=== PATIENT | female | born 1960 | race Caucasian/White ===

== ENCOUNTER 2023-01-30 18:19 | Emergency (ER) | payer OTHER, SELFPAY ==
[2023-01-30 18:23] VITALS: BP 134/84; PULSE 66; RESP 18; TEMP 36.2; O2SAT 99; BMI 29.3
--- NOTE | 2023-01-30 18:44 | CRLHL7_ITS ---
For Patients: As a result of the Century Cures Act, medical imaging exams and procedure reports are released immediately into your electronic medical record. You may view this report before your referring provider. If you have questions, please contact your health care provider. INDICATION: Constipation. COMPARISON: None. TECHNIQUE: Supine and upright views the abdomen. IMPRESSION: Nonobstructive bowel gas pattern. No pneumatosis or pneumoperitoneum. Above-average stool burden. Postsurgical changes in the stomach. Degenerative changes in the spine. Imaged lung bases are unremarkable. Calcified pelvic phleboliths. Dictated by Luis Delgado MD @ 01/30/2023 7:37:28 PM (Electronically Signed)
--- NOTE | 2023-01-30 18:45 | ED.GENADULT ---
HPI - General Adult General Time Seen by Provider: 18:45 Date Seen: 01/30/23 Chief complaint: Abdominal Pain Stated complaint: Constipated Time Seen by Provider: 01/30/23 18:27 Source: patient and RN notes reviewed Mode of arrival: ambulatory Limitations: no limitations History of Present Illness HPI narrative: Patient is a 62-year-old female coming in with concern of constipation. She was referred from Urgent Care to the ER for evaluation. She is worried about constipation. She has had a history of constipation that required manual disimpaction before. About 3 weeks ago, patient was on amoxicillin for a sinus infection. Her stools were becoming runny with the antibiotic use and her baseline use of MiraLax. She went off the MiraLax while on the antibiotics but feels that the constipation started. She used milk of magnesia over the weekend and feels like there is still something up inside that is not passing. She states she has been getting runny stool. When she goes to bear down and have a bowel movement, she feels like there is something up inside. She is actually felt with gloved fingers and cannot feel anything in the rectal vault. She has not had any nausea, no vomiting. States her oral intake of solids and liquids is fine. No abdominal discomfort unless she is attempting to have a bowel movement. She had a gastric bypass up in the [facility] area in about 2018. She states she has had colonoscopies before, believes she is up-to-date. Related Data Home Medications Medication Instructions Recorded Confirmed No Known Home Medications 01/30/23 01/30/23 Allergies Allergy/AdvReac Type Severity Reaction Status Date / Time No Known Drug Allergies Allergy Verified 01/30/23 18:28 Review of Systems Status of ROS: Reports: 10 or more systems reviewed and unremarkable except as noted in History and below [facility] Social History Smoking Status: Never smoker service: No Exam Const: Vital Signs, click to edit/add: Vital Signs - 24 hr 01/30/23 18:23 Temperature 97.1 F L Pulse Rate [Right Pulse Oximeter] 66 Respiratory Rate 18 Blood Pressure [Ri ght Upper Arm] 134/84 Pulse Oximetry 99 Oxygen Delivery Me thod Room Air Documenting provider has reviewed patient's vital signs: yes Common normals: no apparent distress, average body habitus, oriented x3, no limitations, healthy appearing and alert General appearance: cooperative, comfortable, well kempt and well developed HENMT: Common normals: normocephalic, head/scalp atraumatic and hearing grossly normal bilaterally Head and scalp: normocephalic and atraumatic Eye: Common normals: PERRL, EOMs intact bilaterally, conjunctivae normal and no scleral icterus Conjunctiva: conjunctiva(e) normal Pupil: PERRL Neck & C-Spine: Common normals: full ROM, no lymphadenopathy, supple, no meningeal signs, no JVD and thyroid normal Thyroid: thyroid normal Resp: Common normals: normal respiratory effort, no retractions, no use of accessory muscles and clear to auscultation bilaterally Auscultation: clear to auscultation bilaterally Cardio: Common normals: no JVD, regular rate, regular rhythm, S1 normal heart sound, S2 normal heart sound, no gallops, no clicks and no murmurs Rate: regular rate Rhythm: regular rhythm Heart sounds: S1 normal and S2 normal GI: Common normals: Normal to inspection, nondistended, normoactive bowel sounds present, soft to palpation, non-tender, no hepatosplenomegaly and no masses Palpation: soft and no hepatosplenomegaly Neuro: Common normals: oriented x3 Sensorium/orientation: alert Meningeal signs: no meningeal signs Psych: Appearance: well kempt Course Course Hospital Course: Patient's clinical exam is quite benign, believe we can start with flat and upright. Without any nausea or vomiting and having good oral intake, this is very doubtful to be an obstructive process. Have reviewed with her that we will start with an abdominal series with flat and upright to see stool burden, confirmed normal appearance of bowels. We will check baseline labs including electrolytes. She understands that we may need to proceed with CT imaging if there is any concerns. Obstruction, partial obstruction are very unlikely. This could be constipation, possible mass within the colon. At this time she does not seem to be in any distress, will proceed with basic labs and abdominal imaging with plain films. Reevaluation(s) Reevaluation #1: Anus appears normal but there is some surrounding mild erythema externally an some stool smearing. Digital rectal exam reveals no mass in the vault, no pain. I cannot feel any stool burden. Patient states when she feels like she is trying to push she feels like something is moving down in then comes back up. I cautioned patient to not strain if she is doing so, can actually cause as rectal prolapse if she is excessively straining. Did review that if she continues to have symptoms after clean out, may need to actually have colonoscopy done. Did review that the abdominal film does show some stool burden but it is higher up. Unfortunately this is not anything that we will be able to manually disimpact. We reviewed the shortage in difficulty of finding magnesium citrate. Will have her try a GoLYTELY colonoscopy prep to fully clean her out. If she continues to feel the sensation, may need to actually have colonoscopy done. Time: 20:03 Vital Signs Vital signs: Initial Vital Signs Temperature 97.1 F L 01/30/23 18:23 Temperature Source Temporal Artery Scan 01/30/23 18:23 Pulse Rate 66 01/30/23 18:23 Respiratory Rate 18 01/30/23 18:23 Blood Pressure 134/84 01/30/23 18:23 Blood Pressure Mean 100 01/30/23 18:23 Blood Pressure Position Sitting 01/30/23 18:23 Pulse Oximetry 99 01/30/23 18:23 Oxygen Delivery Method 01/30/23 18:23 Vital Signs Temperature 97.1 F L 01/30/23 18:23 Pulse Rate 66 01/30/23 18:23 Respiratory Rate 18 01/30/23 18:23 Blood Pressure 134/84 01/30/23 18:23 Pulse Oximetry 99 01/30/23 18:23 Oxygen Delivery Method 01/30/23 18:23 Temperature 97.1 F L 01/30/23 18:23 Pulse Rate 66 01/30/23 18:23 Respiratory Rate 18 01/30/23 18:23 Blood Pressure 134/84 01/30/23 18:23 Pulse Oximetry 99 01/30/23 18:23 Oxygen Delivery Method 01/30/23 18:23 Medical Decision Making Lab Data Lab results reviewed: Yes I reviewed the patient's lab results Labs: Lab Results 01/30/23 01/30/23 01/30/23 Range/Units 19:10 19:10 19:10 WBC 6.32 (4.50-11.00) K/uL RBC 4.23 (4.00-5.20) m/uL Hgb 12.4 (12.0-16.0) gm/dL Hct 37.3 (33.0-51.0) % MCV 88 (80-100) fL MCH 29 (26-34) pg MCHC 33 (32-36) gm/dL RDW Coeff of Rosemary 12.9 (11.5-15.5) % Plt Count 179 (140-440) K/uL Neut % (Auto) 64.3 (42.0-72.0) % Lymph % (Auto) 24.8 (20-44) % Ingham % (Auto) 9.5 (0.0-11.0) % Eos % (Auto) 0.9 (0.0-7.0) % Baso % (Auto) 0.3 (0.0-3.0) % Neut # (Auto) 4.06 (1.7-7.0) K/uL Lymph # (Auto) 1.57 (0.90-2.90) K/uL Ingham # (Auto) 0.60 (0.00-0.90) K/UL Eos # (Auto) 0.06 (0.00-0.50) K/uL Baso # (Auto) 0.02 (0.00-0.30) K/uL Sodium 138 (135-149) mmol/L Potassium 3.5 L (3.6-5.1) mmol/L Chloride 105 (96-114) mmol/L Carbon Dioxide 29 (20-32) mmol/L BUN 25 (7-30) mg/dL Creatinine 0.6 (0.5-1.5) mg/dL Estimated Creat Clear 46.13 Estimated GFR 101 ml/min Glucose 93 (60-115) mg/dL Lactate 0.8 (0.5-1.9) mmol/L Calcium 9.1 (8.4-10.6) mg/dL Magnesium 2.3 (1.5-2.6) mg/dL C-Reactive Protein < 0.5 L (0.5-1.0) mg/dL Imaging Data Abdominal x-ray: Attestation: I have reviewed the pertinent imaging results. Radiologist's impression: Patient: ROBERTO MALCOLM Facility:?[facility] Patient ID:?[id number] Site Patient ID:?[id number]. Site :?[id number] Study:?XRay Abdomen flat and upright-01/30/2023 7:09:39 PM Ordering Physician:Deanna Whittington Final Report: INDICATION: Constipation. COMPARISON: None. TECHNIQUE: Supine and upright views the abdomen. IMPRESSION: Nonobstructive bowel gas pattern. No pneumatosis or pneumoperitoneum. Above-average stool burden. Postsurgical changes in the stomach. Degenerative changes in the spine. Imaged lung bases are unremarkable. Calcified pelvic phleboliths. Dictated by Luis Delgado MD @ 01/30/2023 7:37:28 PM (Electronic Signature) Critical Care Time Critical Care Time Critical Care Time: No Discharge Plan Discharge Clinical Impression: Constipation Patient Disposition: Home, Self-Care Condition: Stable Instructions: Constipation (ED), High Fiber Diet (ED) Additional Instructions: Recommend obtaining the GoLYTELY prep and using for a bowel clear out as you would for colonoscopy. Resume MiraLax once you have completed this prep. If you should start having vomiting, severe abdominal pain or fever, do need to seek re-evaluation. If you have ongoing sense of difficulty with her bowels, may need to have your primary care provider order a colonoscopy. Minimize straining to stool, can cause as prolapse of the rectum/colon. Activity Level: Activity as Tolerated Prescriptions: No Action No Known Home Medications Follow Up/Referrals: Provider,Not a Local [Primary Care Provider] - Stand Alone Forms: MyHealth Info Instructions
[2023-01-30 19:18] LABS: Basophils Absolute Auto 0.02 K/uL (0.00-0.30); Basophils Percent Auto 0.3 % (0.0-3.0); Eosinophils Absolute Auto 0.06 K/uL (0.00-0.50); Eosinophils Percent Auto 0.9 % (0.0-7.0); Hematocrit 37.3 % (33.0-51.0); Hemoglobin* 12.4 gm/dL (12.0-16.0); Immature Granulocytes Abs Auto 0.01 K/uL (0.00-0.30); Immature Granulocytes Pct Auto 0.2 %; Lactate* 0.8 mmol/L (0.5-1.9); Lymphocytes Absolute Auto 1.57 K/uL (0.90-2.90); Lymphocytes Percent Auto 24.8 % (20-44); Mean Corpuscular HGB Conc 33 gm/dL (32-36); Mean Corpuscular Hemoglobin 29 pg (26-34); Mean Corpuscular Volume 88 fL (80-100); Monocytes Percent Auto 9.5 % (0.0-11.0); Neutrophils Absolute Auto 4.06 K/uL (1.7-7.0); Neutrophils Percent Auto 64.3 % (42.0-72.0); Platelet Count* 179 K/uL (140-440); RDW Coefficient of Variation % 12.9 % (11.5-15.5); Red Blood Count 4.23 m/uL (4.00-5.20); White Blood Count* 6.32 K/uL (4.50-11.00)
[2023-01-30 19:35] LABS: Chloride* 105 mmol/L (96-114); Potassium* 3.5 mmol/L (3.6-5.1); Slide Review Reflex No; Sodium* 138 mmol/L (135-149)
[2023-01-30 19:38] LABS: Blood Urea Nitrogen* 25 mg/dL (7-30); Carbon Dioxide* 29 mmol/L (20-32); Creatinine* 0.6 mg/dL (0.5-1.5); Est. Creatinine Clearance* 46.13; Estimated Glomerular Filt Rate 101 ml/min; Glucose* 93 mg/dL (60-115)
[2023-01-30 19:39] LABS: Calcium* 9.1 mg/dL (8.4-10.6); Magnesium* 2.3 mg/dL (1.5-2.6)
[2023-01-30 19:43] LABS: C Reactive Protein* < 0.5 mg/dL (0.5-1.0)
== END 2023-01-30 20:36 | disposition home or self-care (01) ==
PROVIDERS: Emergency Provider Family Medicine
DX: K59.00 Constipation, unspecified (principal)
CPT/HCPCS: 36415; 74019; 80048; 83605; 83735; 85025; 86140; 99283; 99284

== ENCOUNTER 2023-06-01 15:01 | Outpatient (CLI) | payer OTHER, SELFPAY ==
--- NOTE | 2023-06-01 15:40 | CRLHL7_ITS ---
For Patients: As a result of the Century Cures Act, medical imaging exams and procedure reports are released immediately into your electronic medical record. You may view this report before your referring provider. If you have questions, please contact your health care provider. BILATERAL SCREENING MAMMOGRAM WITH COMPUTER-AIDED DETECTION AND TOMOSYNTHESIS TECHNIQUE: CC and MLO views were obtained. These mammographic images have been obtained using full-field digital technique. These mammographic images were interpreted with the benefit of computer-aided detection. Breast tomosynthesis was used in this interpretation. COMPARISON FILM: 05/03/22, 03/15/21, 01/10/19. FINDINGS: The breasts are heterogeneously dense, which may obscure small masses. IMPRESSION: There is no radiographic evidence for malignancy. ASSESSMENT: BI-RADS Category 1: Negative RECOMMENDATION: Routine screening mammogram in 1 year. A lay language report of this examination will be provided to the patient. LUIS FREDERICK M.D. Diagnostic Radiologist [email or web address] [email or web address]/[email or web address] Transcribed: 06/02/2023, 3:[address]/Dictated by: Luis Frederick MD @ 06/02/2023 9:12:00 AM (Electronically Signed)
== END 2023-06-01 15:02 | disposition home or self-care (01) ==
LOC: MAMMO 15:02
PROVIDERS: PCP Family Medicine; Visit Provider Family Medicine
DX: Z12.31 Encounter for screening mammogram for malignant neoplasm of breast (principal); R92.2 Inconclusive mammogram
CPT/HCPCS: 77063; 77067

== ENCOUNTER 2024-05-02 07:30 | Outpatient (CLI) | payer OTHER, SELFPAY ==
--- OUTSIDE RECORDS SUMMARY | 2024-05-05 20:13 | XMS_ITS | Clinical Summary ---
[facility] Address [address] [place] [address] Care Team Providers Care Security Software Engineer Name Role Phone Unavailable Primary Care Provider Unavailabl e Source Comments You are receiving this document as you are listed as the primary care provider,follow-up provider, or the patient has been referred to you for consultation.This is in compliance with the Medicare and[facility] Cent[facility]aid EHR Incentive Program,which states Providers who transition their patient to another setting of careor provider of care or refers their patient to another provider of care shouldprovide summary care record for each transition of care or referral. [employer] Allergies Active Allergy Reactions Criticality Noted Date Comments Ibuprofen Other, see comments Low 01/15/2023 Pt with gastric sleeve in 2018 Medications Medication Sig Dispensed Refills Start Date End Date Status Ascorbic Acid (VITAMIN C) 250 MG tablet Take 1 Tablet (250 mg) by mouth daily. Active Turmeric 500 MG CAPS Acti ve calcium carbonate-vitamin D 600-10 MG-MCG tablet Take 1 Tablet by mouth two times a day. Active Multiple Vitamins-Iron (MULTIVITAMIN/IRON OR) Ac tive Elderberry 500 MG CAPS Ac tive Inulin (FIBER CHOICE OR) Active Active Problems No known active problems Social History Tobacco Use Types Packs/Day Years Used Date Smoking Tobacco: Never Tobacco Cessation:Counseling Given: Not Answered Sex and Gender Information Value Date Recorded Sex Assigned at Not on file Gender Identity Not on file Sexual Orientation Not on file Last Filed Vital Signs Vital Sign Reading Time Taken Comments Blood Pressure 124/91 01/15/2023 1:13 PM ADVERTISING ACCOUNT EXECUTIVE Pulse 64 01/15/2023 1:13 PM ADVERTISING ACCOUNT EXECUTIVE Temperature - - Respiratory Rate 20 01/15/2023 1:13 PM ADVERTISING ACCOUNT EXECUTIVE Oxygen Saturation 100% 01/15/2023 1:13 PM ADVERTISING ACCOUNT EXECUTIVE Inhaled Oxygen Concentration - - Weight - - Height - - Body Mass Index - - Plan of Treatment Health Maintenance Due Date Last Done Comments Cervical Cancer Screening Due 1960 Colon Cancer Screening Plan Due 1960 Hep C Screening (Preventive Services) 1960 Mammogram 1960 HIV Screening (Preventive Services) 1976 Adult Preventive Visit 1978 DTaP/Tdap/Td (1 - Tdap) 1979 Cholesterol 2005 COVID-19 Vaccine ( season) 2023 09/06/2022, 04/04/2022, 10/13/2021, Additional history exists Influenza (Season Ended) 2024 022, 08/14/2021, 07/29/2020, Additional history exists Pneumococcal Aged Out 08/22/2016 No longer eligi ble based on patient's age to complete this topic Zoster/Shingles Completed 08/22/2019, 06/04/2019 HepA Aged Out No longer eligi ble based on patient's age to complete this topic HepB Aged Out No longer eligi ble based on patient's age to complete this topic Hib Aged Out No longer eligi ble based on patient's age to complete this topic IPV (Polio) Aged Out No longer eligi ble based on patient's age to complete this topic MCV4 Aged Out No longer eligi ble based on patient's age to complete this topic
== END 2024-05-02 07:31 | disposition home or self-care (01) ==
LOC: NFLDREF 05-05 20:11
PROVIDERS: PCP Family Medicine; Referring Provider Family Medicine; Visit Provider Family Medicine
DX: Z90.3 Acquired absence of stomach [part of] (principal); E78.5 Hyperlipidemia, unspecified; N81.0 Urethrocele; R79.89 Other specified abnormal findings of blood chemistry; R53.83 Other fatigue
CPT/HCPCS: 80053; 80061; 82306; 82607; 82728

== ENCOUNTER 2024-06-03 07:57 | Outpatient (CLI) | payer OTHER, SELFPAY ==
--- OUTSIDE RECORDS SUMMARY | 2024-06-03 07:58 | XMS_ITS | Clinical Summary ---
Author Organization [facility] Address [address] [place] [address] Care Team Providers Care Banana Loader Name Role Phone Unavailable Primary Care Provider Unavailabl e Source Comments You are receiving this document as you are listed as the primary care provider,follow-up provider, or the patient has been referred to you for consultation.This is in compliance with the Medicare andSelect [facility] Cantoncaid EHR Incentive Program,which states Providers who transition their patient to another setting of careor provider of care or refers their patient to another provider of care shouldprovide summary care record for each transition of care or referral. [employer] Allergies Active Allergy Reactions Criticality Noted Date [...] Comments Blood Pressure 124/91 01/15/2023 1:13 PM MOTOR PATROL OPERATOR Pulse 64 01/15/2023 1:13 PM MOTOR PATROL OPERATOR Temperature - - Respiratory Rate 20 01/15/2023 1:13 PM MOTOR PATROL OPERATOR Oxygen Saturation 100% 01/15/2023 1:13 PM MOTOR PATROL OPERATOR Inhaled Oxygen Concentration - - Weight - [...] 09/06/2022, 04/04/2022, 10/13/2021, Additional history exists Influenza (#1) 2024 09/06/2022, 07/22, 07/29/2020, Additional history exists Pneumococcal Aged Out [...]
--- NOTE | 2024-06-03 08:15 | CRLHL7_ITS ---
For Patients: As a result of the Century Cures Act, medical imaging exams and procedure reports are released immediately into your electronic medical record. You may view this report before your referring provider. If you have questions, please contact your health care provider. BILATERAL SCREENING MAMMOGRAM WITH COMPUTER-AIDED DETECTION AND TOMOSYNTHESIS TECHNIQUE: CC and MLO views were obtained. These mammographic images have been obtained using full-field digital technique. These mammographic images were interpreted with the benefit of computer-aided detection. Breast Tomosynthesis was used in this interpretation. COMPARISON FILM: 06/01/23, 05/03/22, 03/15/21. FINDINGS: There are scattered areas of fibroglandular density. IMPRESSION: There is no radiographic evidence for malignancy. ASSESSMENT: BI-RADS Category 1: Negative RECOMMENDATION: Routine screening mammogram in 1 year. A lay language report of this examination will be provided to the patient. Luis Valdes M.D. Diagnostic Radiologist [email or web address] SP/Dictated by: Luis Valdes MD @ 06/03/2024 12:26:00 PM (Electronically Signed)
== END 2024-06-03 07:58 | disposition home or self-care (01) ==
LOC: MAMMO 07:57
PROVIDERS: PCP Family Medicine; Visit Provider Family Medicine
DX: Z12.31 Encounter for screening mammogram for malignant neoplasm of breast (principal)
CPT/HCPCS: 77063; 77067

== ENCOUNTER 2025-05-08 07:31 | Outpatient (CLI) | payer OTHER, SELFPAY | END 2025-05-08 07:32 | disposition home or self-care (01) | LOC: NFLDREF 05-12 13:48 | PROVIDERS: PCP Family Medicine; Referring Provider Family Medicine; Visit Provider Family Medicine | DX: R79.89 Other specified abnormal findings of blood chemistry (principal); R53.83 Other fatigue; M81.0 Age-related osteoporosis without current pathological fracture; E78.5 Hyperlipidemia, unspecified | CPT/HCPCS: 80053; 80061; 82306; 82728; 84443 ==

== ENCOUNTER 2025-06-10 07:56 | Outpatient (CLI) | payer OTHER, SELFPAY ==
--- NOTE | 2025-06-10 08:15 | CRLHL7_ITS ---
For Patients: As a result of the Century Cures Act, medical imaging exams and procedure reports are released immediately into your electronic medical record. You may view this report before your referring provider. If you have questions, please contact your health care provider. INDICATION: BILATERAL SCREENING MAMMOGRAM, ASYMPTOMATIC 64 Y/O FEMALE COMPARISON: 06/03/2024, 06/01/2023, 05/03/2022 TECHNIQUE: Digital mammogram in CC and MLO projections including computer-aided detection (CAD) and tomosynthesis. BREAST COMPOSITION: There are scattered areas of fibroglandular density. FINDINGS: No suspicious findings. ASSESSMENT: BI-RADS 1 Negative RECOMMENDATION: Annual screening mammogram. A lay language report of this examination will be provided to the patient. Dictated by: Rose Leggett MD @ 06/12/2025 09:26:26 (Electronically Signed)
== END 2025-06-10 07:57 | disposition home or self-care (01) ==
LOC: MAMMO 07:57
PROVIDERS: PCP Family Medicine; Visit Provider Family Medicine
DX: Z12.31 Encounter for screening mammogram for malignant neoplasm of breast (principal)
CPT/HCPCS: 77063; 77067

== ENCOUNTER 2025-08-12 07:30 | Outpatient (CLI) | payer OTHER, SELFPAY | END 2025-08-12 07:31 | disposition home or self-care (01) | LOC: NFLDREF 08-15 14:00 | PROVIDERS: PCP Family Medicine; Referring Provider Family Medicine; Visit Provider Family Medicine | DX: E78.5 Hyperlipidemia, unspecified (principal) | CPT/HCPCS: 80061 ==